=== PATIENT | male | born 1950 | race Caucasian/White ===

== ENCOUNTER 2023-08-26 16:27 | Inpatient (IN) | payer OTHER, MEDICARE ==
[~2023-08-26] VITALS: Ht 182.9 cm; Wt 58.1 kg
--- NOTE | 2023-08-26 17:53 | NUR ---
Pt came into the ED for cough x 2 weeks, resprations are 20, pulse 99, pt has hx of A-Fib, CHF. See respiratory assessment.
--- NOTE | 2023-08-26 17:53 | NUR ---
[facility] PT GENERAL ASSESSMENT REVIEWED BY KYM RN AND APPROVED
[2023-08-26] MEDS ORDERED: azithromycin/NS 500mg/250ml 250 ML IV ONE (18:05)
[2023-08-26 18:45] LABS: BASOPHILS # (AUTO) 0.1 X10'3 (0-0.2); BASOPHILS % (AUTO) 0.6 % (0-1); EOSINOPHILS % (AUTO) 0.2 % (0-6); HEMATOCRIT 35.8 % (42.0-52.0); HEMOGLOBIN 12.2 g/dl (14.0-17.9); LYMPHOCYTES # (AUTO) 0.7 X10'3 (1.1-4.8); LYMPHOCYTES % (AUTO) 7.7 % (21-51); MEAN CORPUSCULAR HEMOGLOBIN 31.1 PG (27.0-31.0); MEAN CORPUSCULAR HGB CONC 34.2 g/dL (33.0-36.5); MEAN CORPUSCULAR VOLUME 91.1 FL (78-98); MONOCYTES # (AUTO) 1.1 X10'3 (0-0.9); MONOCYTES % (AUTO) 11.2 % (2-12); NEUTROPHILS # (AUTO) 7.8 X10'3 (1.8-7.7); NEUTROPHILS % (AUTO) 80.3 % (42-75); PLATELET COUNT 272 X10'3 (140-440); RED BLOOD COUNT 3.93 X10'6 (4.70-6.10); RED CELL DISTRIBUTION WIDTH 13.7 % (11.5-14.5); WHITE BLOOD COUNT 9.8 X10'3 (4.5-11.0)
--- NOTE | 2023-08-26 18:46 | NUR ---
90 PERCENT RA SITTING, WALKED IN [address] WAY AND BACK, 89, 88 PERCENT. NO SOBJECTIVE SOB, OBTAINING 02 SET UP. DENIES SMOKING HISTORY, USED POT RARELY IN STATED, IS A SMOKER, SMOKES OUTSIDE, BUT, LIVED WITH SMOKING PARENTS THROUGHT CHILDHOOD AND TEENAGE YEARS TO DEPARTURE FROM HOME, STATED.
[2023-08-26 18:58] LABS: ALANINE AMINOTRANSFERASE 46 U/L (12-78); ALBUMIN 3.2 G/DL (3.4-5.0); ALBUMIN/GLOBULIN RATIO 0.7 (1.1-1.5); ALKALINE PHOSPHATASE 270 IU/L (46-116); ANION GAP 9 (8-16); ASPARTATE AMINO TRANSFERASE 31 U/L (10-37); BILIRUBIN,TOTAL 1.1 MG/DL (0.1-1.0); BLOOD UREA NITROGEN 29 MG/DL (7-18); BUN/CREATININE RATIO 19.2 (10.0-20.0); C-REACTIVE PROTEIN 20.48 MG/DL (0.0-0.5); CALCIUM 9.6 MG/DL (8.5-10.1); CHLORIDE 97 MMOL/L (99-107); CREATININE 1.51 MG/DL (0.60-1.10); GLUCOSE 329 MG/DL (70-104); POTASSIUM 4.9 MMOL/L (3.5-5.1); SODIUM 132 MMOL/L (135-145); TOTAL CARBON DIOXIDE 26.4 MMOL/L (24-32); TOTAL PROTEIN 7.9 G/DL (6.4-8.2); eCRCL 49 ML/MIN; eGFR 46 ML/MIN
[2023-08-26] MEDS ORDERED: acetaminophen 325mg tablet PO ONE (19:10)
[2023-08-26] MEDS ORDERED: insulin regular, human 10 units/0.1 ml syringe SQ ONE (19:15)
[2023-08-26] MEDS: CefTRIAXone 2gm/D5W 50ml BAG 50 ML IV SCH (19:16)
--- NOTE | 2023-08-26 19:32 | NUR ---
CALL TO [facility] FOR HOME MEDICATIONS AT [phone] MARIELA FROM PT.
--- NOTE | 2023-08-26 19:34 | NUR ---
CALLED SEVERAL TIMES REACHING VOICE MAIL. TRYING TO OBTAIN HOME MEDS.
[2023-08-26] MEDS ORDERED: CARV25TA2 PO (21:59)
[2023-08-26] MEDS ORDERED: ROSU5TAB PO (21:59)
[2023-08-26] MEDS ORDERED: FURO-149 PO (21:59)
[2023-08-26] MEDS ORDERED: INSU100I73 SQ (21:59)
[2023-08-26] MEDS ORDERED: FLO0.4C PO (21:59)
[2023-08-26] MEDS ORDERED: APIX5TAB3 PO (21:59)
[2023-08-26] MEDS ORDERED: SEMA1PEN3 SQ (21:59)
[2023-08-26] MEDS ORDERED: SACU1TAB PO (21:59)
[2023-08-26] MEDS ORDERED: AMIO100T4 PO (22:04)
--- NOTE | 2023-08-26 22:22 | NUR ---
TO BED 10, STABLE, 2 l 02, REPORTING TO NIC, HOSPITALIST AWARE OF THE PATIENT WAS CALLED.
[2023-08-26] MEDS ORDERED: HYDROcodone/acetaminophen 10/325mg tab PO ONE (22:35)
[2023-08-26] MEDS ORDERED: mag hydrox/Alum hydrox/simeth 30ml oral suspension PO PRN (23:15)
[2023-08-26] MEDS ORDERED: magnesium 2GM in 50ml NS 50 ML IV PRN (23:15)
[2023-08-26] MEDS ORDERED: PERFLUTREN PROTEIN-A MICROSPHR (Optison) 0.22 MG/ML 3ML VIAL IV ONE (23:15)
[2023-08-26] MEDS ORDERED: acetaminophen 325mg tablet PO PRN (23:15)
[2023-08-26] MEDS ORDERED: potassium Cl 40MEQ/1/2NS 520ml 520 ML IV PRN (23:15)
[2023-08-26] MEDS ORDERED: magnesium hydroxide 30ml (MOM) UD suspension PO PRN (23:15)
[2023-08-26] MEDS ORDERED: magnesium 4gm in 100ml NS 100 ML IV PRN (23:15)
[2023-08-26] MEDS ORDERED: magnesium Cl slow-release 64mg tablet PO PRN (23:15)
[2023-08-26] MEDS ORDERED: morphine 2 MG/ML inj. syringe IV PRN ×2 (23:15)
[2023-08-26] MEDS ORDERED: potassium Cl 20 mEq SR tablet PO PRN ×2 (23:15)
[2023-08-26] MEDS ORDERED: ondansetron/PF 4mg/2ml inj IV PRN (23:15)
[2023-08-26] MEDS: normal saline 1000ml 1,000 ML IV SCH (23:50)
[2023-08-27] VITALS (8 sets, daily range): BP systolic 107–124; BP diastolic 61–73; PULSE 77–90; RESP 14–22; TEMP 97.6–98.9; O2SAT 93–97
[2023-08-27] MEDS ORDERED: morphine 2 MG/ML inj. syringe IV PRN (05:25)
[2023-08-27] MEDS: morphine 4 MG/ML inj SYRINge IV PRN ×5 (05:32→19:42)
[2023-08-27] MEDS: K and/or MAG REPLACEMENT MC SCH ×2 (08:00→19:42)
[2023-08-27] MEDS ORDERED: docusate sod 100mg capsule PO SCH (08:00)
[2023-08-27] MEDS: furosemide 40mg tablet PO SCH ×2 (09:32→19:34)
[2023-08-27] MEDS: amiodarone 100mg tablet PO SCH (09:32)
[2023-08-27] MEDS: carVEDilol 12.5mg tablet PO SCH ×2 (09:33→19:35)
[2023-08-27] MEDS: tamsulosin 0.4mg capsule PO SCH (09:33)
[2023-08-27] MEDS: CefTRIAXone/D5W-Rocephin 1gm 50 ML IV SCH ×2 (10:00→18:27)
[2023-08-27 10:29] LABS: BASOPHILS % (AUTO) 0.5 % (0-1); EOSINOPHILS # (AUTO) 0.1 X10'3 (0-0.9); EOSINOPHILS % (AUTO) 0.7 % (0-6); HEMATOCRIT 30.7 % (42.0-52.0); HEMOGLOBIN 10.7 g/dl (14.0-17.9); LYMPHOCYTES # (AUTO) 0.9 X10'3 (1.1-4.8); LYMPHOCYTES % (AUTO) 10.4 % (21-51); MEAN CORPUSCULAR HEMOGLOBIN 31.4 PG (27.0-31.0); MEAN CORPUSCULAR HGB CONC 34.7 g/dL (33.0-36.5); MEAN CORPUSCULAR VOLUME 90.5 FL (78-98); MEAN PLATELET VOLUME 6.7 FL (7.4-10.4); MONOCYTES # (AUTO) 1.1 X10'3 (0-0.9); MONOCYTES % (AUTO) 13.1 % (2-12); NEUTROPHILS # (AUTO) 6.2 X10'3 (1.8-7.7); NEUTROPHILS % (AUTO) 75.3 % (42-75); PLATELET COUNT 244 X10'3 (140-440); RED BLOOD COUNT 3.39 X10'6 (4.70-6.10); RED CELL DISTRIBUTION WIDTH 13.6 % (11.5-14.5); WHITE BLOOD COUNT 8.2 X10'3 (4.5-11.0)
[2023-08-27 10:53] LABS: ALANINE AMINOTRANSFERASE 52 U/L (12-78); ALBUMIN 2.6 G/DL (3.4-5.0); ALBUMIN/GLOBULIN RATIO 0.6 (1.1-1.5); ALKALINE PHOSPHATASE 238 IU/L (46-116); ANION GAP 4 (8-16); ASPARTATE AMINO TRANSFERASE 42 U/L (10-37); BILIRUBIN,TOTAL 0.7 MG/DL (0.1-1.0); BLOOD UREA NITROGEN 26 MG/DL (7-18); BUN/CREATININE RATIO 22.4 (10.0-20.0); CALCIUM 8.9 MG/DL (8.5-10.1); CHLORIDE 102 MMOL/L (99-107); CREATININE 1.16 MG/DL (0.60-1.10); GLUCOSE 205 MG/DL (70-104); MAGNESIUM 2.1 MG/DL (1.5-2.4); POTASSIUM 4.4 MMOL/L (3.5-5.1); SODIUM 136 MMOL/L (135-145); TOTAL CARBON DIOXIDE 30.1 MMOL/L (24-32); TOTAL PROTEIN 6.8 G/DL (6.4-8.2); eCRCL 64 ML/MIN; eGFR 62 ML/MIN
[2023-08-27] MEDS: ROSUVASTATIN CALCIUM 5 MG TABLET PO SCH (11:02)
[2023-08-27] MEDS: sacubitril/valsartan 24mg-26mg tablet PO SCH ×2 (11:03→19:34)
[2023-08-27 11:37] LABS: HEMOGLOBIN A1C 7.2 % (4.5-6.2)
[2023-08-27] MEDS: azithromycin 250mg tablet PO SCH (12:48)
--- NOTE | 2023-08-27 16:00 | NUR ---
Medicated for chest discomfort multiple times.
[2023-08-27] MEDS: CefTRIAXone 2gm/D5W 50ml BAG 50 ML IV SCH (18:31)
[2023-08-28] VITALS (8 sets, daily range): BP systolic 97–121; BP diastolic 58–69; PULSE 72–89; RESP 16–20; TEMP 97.9–98.4; O2SAT 91–96
[2023-08-28] MEDS: morphine 4 MG/ML inj SYRINge IV PRN ×5 (00:37→21:06)
[2023-08-28 06:03] LABS: BASOPHILS % (AUTO) 0.5 % (0-1); EOSINOPHILS # (AUTO) 0.2 X10'3 (0-0.9); EOSINOPHILS % (AUTO) 2.2 % (0-6); HEMATOCRIT 31.2 % (42.0-52.0); HEMOGLOBIN 10.9 g/dl (14.0-17.9); LYMPHOCYTES # (AUTO) 0.9 X10'3 (1.1-4.8); LYMPHOCYTES % (AUTO) 10.3 % (21-51); MEAN CORPUSCULAR HEMOGLOBIN 31.5 PG (27.0-31.0); MEAN CORPUSCULAR VOLUME 90.1 FL (78-98); MEAN PLATELET VOLUME 6.7 FL (7.4-10.4); MONOCYTES # (AUTO) 1.2 X10'3 (0-0.9); MONOCYTES % (AUTO) 13.6 % (2-12); NEUTROPHILS # (AUTO) 6.3 X10'3 (1.8-7.7); NEUTROPHILS % (AUTO) 73.4 % (42-75); PLATELET COUNT 275 X10'3 (140-440); RED BLOOD COUNT 3.47 X10'6 (4.70-6.10); RED CELL DISTRIBUTION WIDTH 13.5 % (11.5-14.5); WHITE BLOOD COUNT 8.5 X10'3 (4.5-11.0)
[2023-08-28 06:11] LABS: ALANINE AMINOTRANSFERASE 50 U/L (12-78); ALBUMIN 2.6 G/DL (3.4-5.0); ALBUMIN/GLOBULIN RATIO 0.6 (1.1-1.5); ALKALINE PHOSPHATASE 262 IU/L (46-116); ANION GAP 7 (8-16); ASPARTATE AMINO TRANSFERASE 39 U/L (10-37); BILIRUBIN,TOTAL 0.7 MG/DL (0.1-1.0); BLOOD UREA NITROGEN 24 MG/DL (7-18); CALCIUM 8.8 MG/DL (8.5-10.1); CHLORIDE 96 MMOL/L (99-107); GLUCOSE 175 MG/DL (70-104); MAGNESIUM 1.7 MG/DL (1.5-2.4); SODIUM 133 MMOL/L (135-145); TOTAL CARBON DIOXIDE 29.6 MMOL/L (24-32); TOTAL PROTEIN 6.8 G/DL (6.4-8.2); eCRCL 62 ML/MIN; eGFR 60 ML/MIN
--- NOTE | 2023-08-28 06:34 | NUR ---
Problems reprioritized. Patient report given to Cristy REDDY questions answered & plan of care reviewed with .
--- NOTE | 2023-08-28 06:40 | NUR ---
Problems reprioritized. Patient report given to Say REDDY questions answered & plan of care reviewed with .
--- NOTE | 2023-08-28 06:53 | NUR ---
This RN has reviewed and agrees w/the DOUGHNUT DOUGH MIXER's physical assessment of this patient.
[2023-08-28] MEDS: K and/or MAG REPLACEMENT MC SCH ×2 (07:20→20:00)
[2023-08-28] MEDS: azithromycin 250mg tablet PO SCH (07:33)
[2023-08-28] MEDS: tamsulosin 0.4mg capsule PO SCH (07:33)
[2023-08-28] MEDS: amiodarone 100mg tablet PO SCH (07:34)
[2023-08-28] MEDS: furosemide 40mg tablet PO SCH (07:34)
[2023-08-28] MEDS ORDERED: furosemide 40mg tablet PO SCH (09:35)
[2023-08-28] MEDS ORDERED: guaiFENesin/DM/phenylephrine syrup 120ml bottle PO PRN (09:35)
[2023-08-28] MEDS: ROSUVASTATIN CALCIUM 5 MG TABLET PO SCH (15:10)
[2023-08-28] MEDS: carVEDilol 12.5mg tablet PO SCH ×2 (15:10→21:08)
[2023-08-28] MEDS: sacubitril/valsartan 24mg-26mg tablet PO SCH (15:36)
[2023-08-28] MEDS: guaiFENesin/DM 10ml UD oral syrup PO PRN (16:06)
--- NOTE | 2023-08-28 16:19 | NUR ---
Problems reprioritized. Patient report given, questions answered & plan of care reviewed with Dariusz RN.
--- NOTE | 2023-08-28 16:19 | NUR ---
Patient in room PCU 3011. I have received report from CATRACHO and had the opportunity to ask questions and assume patient care.
--- NOTE | 2023-08-28 17:32 | NUR ---
PAGER ID: [phone] MESSAGE: GENEVIEVE LIN RE: [id number] MARIBEL, PATIENT BG TRENDING [id number] ACHS, WOULD YOU LIKE TO ADD HYPERGLYEMIC PROTOCOL Addendum: 08/28/23 at 1735 by Jameson Hampton RN MD ORDERING HYPER HYPOGLYCEMIC PROTOCOL.
[2023-08-28] MEDS ORDERED: MESSAGE TO PHARMACY PO ONE (17:35)
[2023-08-28] MEDS ORDERED: dextrose 50%-water 50ml dispensing syringe IV PRN ×2 (17:35)
[2023-08-28] MEDS ORDERED: glucagon, human recombinant 1mg kit SUBCUT PRN (17:35)
[2023-08-28] MEDS ORDERED: DEXTROSE 15 GM of carb/4 tabs (each vial/BOTTLE has 4 tablets) PO PRN ×2 (17:35)
--- NOTE | 2023-08-28 17:57 | NUR ---
Diabetes consult: Pt presents with an A1c of 7.2% this admit per EMR. A1c is appropriate given advanced age per ADA guidelines thus not diabetes nutrition education is not warranted at this time. Will remain available for any nutrition questions or concerns. Addendum: 08/28/23 at [address] Amended: Links added.
--- NOTE | 2023-08-28 18:27 | NUR ---
Problems reprioritized. Patient report given, questions answered & plan of care reviewed with WHIT REDDY.
[2023-08-28] MEDS: CefTRIAXone 2gm/D5W 50ml BAG 50 ML IV SCH (18:35)
[2023-08-28] MEDS: insulin glargine (Lantus) pen - multi-dose SQ SCH (21:00)
[2023-08-28] MEDS: insulin Lispro (HumaLOG) vial - multi-dose SQ SCH (22:32)
[2023-08-28] MEDS: normal saline 1000ml 1,000 ML IV SCH (23:15)
[2023-08-29] VITALS (9 sets, daily range): BP systolic 84–118; BP diastolic 43–70; PULSE 78–85; RESP 12–23; TEMP 98–100.1; O2SAT 90–93
[2023-08-29] MEDS: guaiFENesin/DM 10ml UD oral syrup PO PRN (02:05)
[2023-08-29] MEDS: morphine 4 MG/ML inj SYRINge IV PRN ×4 (02:06→21:38)
--- NOTE | 2023-08-29 06:42 | NUR ---
Patient in room PCU 3011. I have received report from FRANCOIS POSADA and had the opportunity to ask questions and assume patient care.
[2023-08-29 06:54] LABS: BASOPHILS % (AUTO) 0.2 % (0-1); EOSINOPHILS # (AUTO) 0.1 X10'3 (0-0.9); EOSINOPHILS % (AUTO) 1.7 % (0-6); HEMATOCRIT 31.5 % (42.0-52.0); HEMOGLOBIN 11.1 g/dl (14.0-17.9); LYMPHOCYTES # (AUTO) 0.9 X10'3 (1.1-4.8); LYMPHOCYTES % (AUTO) 10.9 % (21-51); MEAN CORPUSCULAR HEMOGLOBIN 31.8 PG (27.0-31.0); MEAN CORPUSCULAR HGB CONC 35.2 g/dL (33.0-36.5); MEAN CORPUSCULAR VOLUME 90.3 FL (78-98); MEAN PLATELET VOLUME 6.7 FL (7.4-10.4); MONOCYTES # (AUTO) 1.1 X10'3 (0-0.9); MONOCYTES % (AUTO) 12.8 % (2-12); NEUTROPHILS # (AUTO) 6.4 X10'3 (1.8-7.7); NEUTROPHILS % (AUTO) 74.4 % (42-75); PLATELET COUNT 301 X10'3 (140-440); RED BLOOD COUNT 3.49 X10'6 (4.70-6.10); RED CELL DISTRIBUTION WIDTH 13.6 % (11.5-14.5); WHITE BLOOD COUNT 8.6 X10'3 (4.5-11.0)
[2023-08-29 07:24] LABS: ALANINE AMINOTRANSFERASE 56 U/L (12-78); ALBUMIN 2.5 G/DL (3.4-5.0); ALBUMIN/GLOBULIN RATIO 0.6 (1.1-1.5); ALKALINE PHOSPHATASE 324 IU/L (46-116); ANION GAP 9 (8-16); ASPARTATE AMINO TRANSFERASE 49 U/L (10-37); BILIRUBIN,TOTAL 0.6 MG/DL (0.1-1.0); BLOOD UREA NITROGEN 38 MG/DL (7-18); BUN/CREATININE RATIO 21.5 (10.0-20.0); CALCIUM 8.8 MG/DL (8.5-10.1); CHLORIDE 94 MMOL/L (99-107); CREATININE 1.77 MG/DL (0.60-1.10); GLUCOSE 185 MG/DL (70-104); MAGNESIUM 1.9 MG/DL (1.5-2.4); POTASSIUM 3.8 MMOL/L (3.5-5.1); SODIUM 135 MMOL/L (135-145); TOTAL CARBON DIOXIDE 32.1 MMOL/L (24-32); eCRCL 42 ML/MIN; eGFR 38 ML/MIN
[2023-08-29] MEDS: CefTRIAXone/D5W-Rocephin 1gm 50 ML IV SCH (07:34)
--- NOTE | 2023-08-29 07:37 | NUR ---
This RN has reviewed and agrees w/the ELECTRO[employer] TURNER [employer] FINISHER's physical assessment of this pt.
[2023-08-29] MEDS: tamsulosin 0.4mg capsule PO SCH (07:38)
[2023-08-29] MEDS: amiodarone 100mg tablet PO SCH (07:38)
[2023-08-29] MEDS: azithromycin 250mg tablet PO SCH (07:38)
[2023-08-29] MEDS: ROSUVASTATIN CALCIUM 5 MG TABLET PO SCH (07:39)
[2023-08-29] MEDS: carVEDilol 12.5mg tablet PO SCH ×2 (07:39→21:37)
[2023-08-29] MEDS: sacubitril/valsartan 24mg-26mg tablet PO SCH ×2 (08:00→21:37)
[2023-08-29] MEDS: K and/or MAG REPLACEMENT MC SCH ×2 (08:00→20:00)
[2023-08-29] MEDS: insulin Lispro (HumaLOG) vial - multi-dose SQ SCH ×2 (09:08→13:32)
[2023-08-29] MEDS ORDERED: CefTRIAXone 2gm/D5W 50ml BAG 50 ML IV SCH (09:35)
[2023-08-29] MEDS ORDERED: CefTRIAXone/D5W-Rocephin 1gm 50 ML IV ONE (10:30)
[2023-08-29] MEDS ORDERED: ondansetron 4mg rapidly disintigrating tab PO PRN (11:30)
[2023-08-29] MEDS: normal saline 1000ml 1,000 ML IV SCH (13:03)
[2023-08-29] MEDS ORDERED: morphine 2 MG/ML inj. syringe IV PRN (14:20)
--- NOTE | 2023-08-29 18:36 | NUR ---
Problems reprioritized. Patient report given, questions answered & plan of care reviewed with LALITA REDDY.
[2023-08-29] MEDS: insulin glargine (Lantus) pen - multi-dose SQ SCH (21:25)
[2023-08-30] MEDS: normal saline 1000ml 1,000 ML IV SCH (01:07)
[2023-08-30 02:00] VITALS: BP 93/54; PULSE 96; RESP 18; TEMP 99.3; O2SAT 90
[2023-08-30 06:00] VITALS: BP 93/56; PULSE 84; RESP 18; TEMP 98.1; O2SAT 90
--- NOTE | 2023-08-30 06:09 | NUR ---
Patient in room PCU 3011. I have received report from Natalia REDDY and had the opportunity to ask questions and assume patient care.
[2023-08-30 06:44] LABS: ALANINE AMINOTRANSFERASE 57 U/L (12-78); ALBUMIN 2.4 G/DL (3.4-5.0); ALBUMIN/GLOBULIN RATIO 0.6 (1.1-1.5); ALKALINE PHOSPHATASE 360 IU/L (46-116); ANION GAP 6 (8-16); ASPARTATE AMINO TRANSFERASE 66 U/L (10-37); BILIRUBIN,TOTAL 0.5 MG/DL (0.1-1.0); BLOOD UREA NITROGEN 39 MG/DL (7-18); BUN/CREATININE RATIO 25.3 (10.0-20.0); CALCIUM 8.5 MG/DL (8.5-10.1); CHLORIDE 97 MMOL/L (99-107); CREATININE 1.54 MG/DL (0.60-1.10); GLUCOSE 160 MG/DL (70-104); MAGNESIUM 1.9 MG/DL (1.5-2.4); SODIUM 132 MMOL/L (135-145); TOTAL PROTEIN 6.7 G/DL (6.4-8.2); eCRCL 49 ML/MIN; eGFR 45 ML/MIN
[2023-08-30 07:16] LABS: BASOPHILS # (AUTO) 0.1 X10'3 (0-0.2); LYMPHOCYTES # (AUTO) 0.8 X10'3 (1.1-4.8); MONOCYTES # (AUTO) 1.1 X10'3 (0-0.9)
[2023-08-30 07:19] LABS: BASOPHILS % (AUTO) 1.1 % (0-1); EOSINOPHILS # (AUTO) 0.1 X10'3 (0-0.9); EOSINOPHILS % (AUTO) 1.8 % (0-6); HEMATOCRIT 32.8 % (42.0-52.0); HEMOGLOBIN 11.4 g/dl (14.0-17.9); LYMPHOCYTES % (AUTO) 10.4 % (21-51); MEAN CORPUSCULAR HEMOGLOBIN 31.2 PG (27.0-31.0); MEAN CORPUSCULAR HGB CONC 34.8 g/dL (33.0-36.5); MEAN CORPUSCULAR VOLUME 89.6 FL (78-98); MEAN PLATELET VOLUME 7.9 FL (7.4-10.4); MONOCYTES % (AUTO) 13.7 % (2-12); NEUTROPHILS # (AUTO) 5.7 X10'3 (1.8-7.7); PLATELET COUNT 267 X10'3 (140-440); RED BLOOD COUNT 3.66 X10'6 (4.70-6.10); RED CELL DISTRIBUTION WIDTH 13.5 % (11.5-14.5); WHITE BLOOD COUNT 7.8 X10'3 (4.5-11.0)
[2023-08-30] MEDS: azithromycin 250mg tablet PO SCH (07:56)
[2023-08-30] MEDS: amiodarone 100mg tablet PO SCH (07:56)
[2023-08-30] MEDS: tamsulosin 0.4mg capsule PO SCH (07:56)
[2023-08-30] MEDS: carVEDilol 12.5mg tablet PO SCH (07:56)
[2023-08-30] MEDS: ROSUVASTATIN CALCIUM 5 MG TABLET PO SCH (07:56)
[2023-08-30] MEDS: sacubitril/valsartan 24mg-26mg tablet PO SCH (07:59)
[2023-08-30] MEDS: morphine 4 MG/ML inj SYRINge IV PRN (07:59)
[2023-08-30 08:00] VITALS: RESP 18
[2023-08-30] MEDS: K and/or MAG REPLACEMENT MC SCH (08:00)
[2023-08-30] MEDS ORDERED: CefTRIAXone (Rocephin) 2gm/D5W 50ml IVPB IV SCH (08:00)
[2023-08-30] MEDS: insulin Lispro (HumaLOG) vial - multi-dose SQ SCH (09:32)
[2023-08-30] MEDS ORDERED: CARV-50 PO (10:04)
[2023-08-30] MEDS ORDERED: LEVO-65 PO (10:06)
[2023-08-30] MEDS ORDERED: ACET-1008 PO (10:06)
[2023-08-30 11:32] VITALS: BP 97/57; PULSE 81; RESP 16; TEMP 98.9; O2SAT 95
--- NOTE | 2023-08-30 13:23 | NUR ---
Patient discharged home at this time, education on new medications and follow up appointment were discussed during this time. IV taken out at time of discharge. Canula whole and intact and upon inspection. All belongings sent with the patient at discharge. Patient expressed verbal understanding of discharge instructions.
== END 2023-08-30 12:48 | disposition home or self-care (01) | DRG 193 ==
LOC: ER 16:28 → ED HOLD 23:15 → PCU 3S 08-27 07:07
PROVIDERS: ADMIT Internal Medicine; ATTEND Internal Medicine
DX: J18.9 Pneumonia, unspecified organism (principal); N17.0 Acute kidney failure with tubular necrosis; I13.0 Hypertensive heart and chronic kidney disease with heart failure and stage 1 through stage 4 chronic kidney disease, or unspecified chronic kidney disease; D63.8 Anemia in other chronic diseases classified elsewhere; I25.10 Atherosclerotic heart disease of native coronary artery without angina pectoris; N18.9 Chronic kidney disease, unspecified; E11.22 Type 2 diabetes mellitus with diabetic chronic kidney disease; Z20.822 Contact with and (suspected) exposure to COVID-19; I48.91 Unspecified atrial fibrillation; I50.9 Heart failure, unspecified; Z79.01 Long term (current) use of anticoagulants; Z79.4 Long term (current) use of insulin; Z85.46 Personal history of malignant neoplasm of prostate; Z87.891 Personal history of nicotine dependence
CPT/HCPCS: 36415; 71045; 71250; 80053; 82948; 83036; 83605; 83735; 84145; 85025; 86140; 87040; 87502; 87503; 87811; 93306; 94760; 97161; 97530; 99285; A4615; G0378; J0456; J0696; J1815; J2270; J7030; J7040